=== PATIENT | female | born 1965 | race Caucasian/White ===

== ENCOUNTER 2017-12-30 15:10 | Emergency (ER) | payer MEDICARE ==
[2017-12-30 15:24] VITALS: BP 158/78; RESP 20; TEMP 99
[2017-12-30] MEDS ORDERED: FAMOTIDINE 20 MG TAB PO STA (15:52)
--- NOTE | 2017-12-30 15:59 | ED ---
Allergic Reaction HPI - General Chief complaint: Allergic Reaction Stated complaint: bee sting Time Seen by Provider: 12/30/17 15:25 Source: patient, RN notes reviewed Mode of arrival: ambulatory Limitations: no limitations - History of Present Illness Initial Comments: This is a 52-year-old female who presents to the emergency department chief complaint of bee sting. Patient states that she was stung by a bee approximately one hour ago. She states that she does have an ALLERGY to honeybees. She denies any difficulty breathing or difficulty swallowing. Patient has a localized reaction. Patient does state that she has poorly controlled diabetes and in the past has been given just Benadryl and Pepcid which has relieved her symptoms. She states that she did take 100 mg of Benadryl prior to arrival. Denies fever, chills, chest pain, shortness of breath , abdominal pain, nausea or vomiting, numbness or tingling, headache or vision changes. - Related Data Previous Rx's Medication Instructions Recorded Famotidine [Pepcid] 20 mg PO DAILY #3 tablet 12/30/17 Allergies Allergy/AdvReac Type Severity Reaction Status Date / Time bee venom protein (honey bee) Allergy Rash/Hives Verified 12/30/17 15:24 diltiazem [From Cardizem] Allergy Anaphylaxis Verified 12/30/17 15:40 doxycycline Allergy Anaphylaxis Verified 12/30/17 15:40 hydromorphone [From Dilaudid] Allergy Anaphylaxis Verified 12/30/17 15:40 iodine Allergy Anaphylaxis Verified 12/30/17 15:40 latex Allergy Anaphylaxis Verified 12/30/17 15:40 levofloxacin Allergy Anaphylaxis Verified 12/30/17 15:40 Morpholine Analogues Allergy Anaphylaxis Verified 12/30/17 15:40 ondansetron [From Zofran] Allergy Anaphylaxis Verified 12/30/17 15:40 simvastatin Allergy Anaphylaxis Verified 12/30/17 15:40 sulfamethoxazole Allergy Anaphylaxis Verified 12/30/17 15:40 [From Bactrim] trimethoprim [From Bactrim] Allergy Anaphylaxis Verified 12/30/17 15:40 metformin [From Glucophage] AdvReac Anaphylaxis Verified 12/30/17 15:40 Review of Systems ROS Statement: Those systems with pertinent positive or pertinent negative responses have been documented in the HPI. ROS Other: All systems not noted in ROS Statement are negative. Past Medical History Past Medical History: Cancer, Diabetes Mellitus, Hypertension Additional Past Medical History / Comment(s): OVARIAN CA History of Any Multi-Drug Resistant Organisms: None Reported Past Surgical History: Section, Hysterectomy, Tonsillectomy Additional Past Surgical History / Comment(s): ABLASION Past Psychological History: No Psychological Hx Reported Smoking Status: Never smoker Past Alcohol Use History: None Reported Past Drug Use History: None Reported General Exam - General Exam Comments Initial Comments: General: Awake and alert, well-developed; in no apparent distress. HEENT: Head atraumatic, normocephalic. Pupils are equal, round and reactive to light. Extraocular movements intact. Oropharynx moist without erythema or exudate. Neck: Supple. Normal ROM. Cardiovascular: Regular rate and rhythm. No murmurs, rubs or gallops. Chest symmetrical. Respiratory: Lungs clear to auscultation bilaterally. No wheezes, rales or rhonchi. Normal respiratory effort with no use of accessory muscles. Musculoskeletal: Normal ROM, no tenderness bilateral upper and lower extremities. Skin: Localized area of erythema and swelling to the right elbow. Neurological: Alert and oriented x3. CN II-XII grossly intact. Speech is fluent and answers are appropriate. No focal neuro deficits. Psychiatric: Normal mood and affect. No overt signs of depression or anxiety noted. Limitations: no limitations Course Vital Signs 12/30/17 15:20 Temperature 99.0 F Pulse Rate 114 H Respiratory 20 Rate Blood Pressure 158/78 O2 Sat by Pulse 94 L Oximetry Medical Decision Making - Medical Decision Making This is a 52-year-old female who presents to the emergency department with chief complaint of bee sting. Patient was stung in the right arm approximately 1 hour ago. She took 100 mg of Benadryl prior to arrival. Vitals are stable and she is in no acute respiratory distress. She does have a localized reaction to the bee sting on the right elbow. Patient given a dose of Pepcid here in the emergency department. She will be discharged home at this time. She will be provided with a prescription for additional doses of Pepcid. She is in agreement and voices understanding. All questions were answered. Disposition Clinical Impression: Bee sting Disposition: HOME SELF-CARE Condition: Good Instructions: Insect Bite or Sting (ED) Additional Instructions: Please take medications as prescribed. Please follow up with primary care provider within 1-2 days. Return to emergency department if symptoms should worsen or any concerns arise. Prescriptions: Famotidine [Pepcid] 20 mg PO DAILY #3 tablet Is patient prescribed a controlled substance at d/c from ED?: No Referrals: Nonstaff,Physician [Primary Care Provider] - 1-2 days Time of Disposition: 16:04
[2017-12-30 16:24] VITALS: PULSE 103
== END 2017-12-30 16:23 | disposition home or self-care (01) ==
LOC: EC 15:10
DX: T63.441A Toxic effect of venom of bees, accidental (unintentional), initial encounter (principal); E11.9 Type 2 diabetes mellitus without complications; I10 Essential (primary) hypertension; Z85.43 Personal history of malignant neoplasm of ovary; Z90.710 Acquired absence of both cervix and uterus; Z88.1 Allergy status to other antibiotic agents; Z88.2 Allergy status to sulfonamides; Z88.5 Allergy status to narcotic agent; Z88.8 Allergy status to other drugs, medicaments and biological substances; Z91.030 Bee allergy status; Z91.040 Latex allergy status; Z91.048 Other nonmedicinal substance allergy status
CPT/HCPCS: 99283